=== PATIENT | female | born 1995 | race Caucasian/White ===

== ENCOUNTER 2019-08-24 14:52 | Emergency (ER) | payer OTHER ==
[~2019-08-24] VITALS: Ht 1165.9 cm; Wt 45.4 kg
[2019-08-24 15:03] VITALS: Ht 1165.9 cm; Wt 45.4 kg
[2019-08-24 16:00] LABS: BASOPHIL % 1.4 % (0-2); PLATELET COUNT 330 x10^3mcL (130-400); RED CELL DISTRIBUTION WIDTH 13.4 % (11.5-14.5)
[2019-08-24 16:06] LABS: CALCIUM 9.6 mg/dL (8.5-10.1); CARBON DIOXIDE 18.4 mmol/L (21-32); CHLORIDE SERUM 99 mmol/L (98-107); CREATININE SERUM 0.8 mg/dL (0.6-1.0); GFR1 > 60 mL/min; GLUCOSE SERUM 137 mg/dL (74-106); POTASSIUM SERUM 3.2 mmol/L (3.5-5.1); SODIUM SERUM 139 mmol/L (136-145)
[2019-08-24 16:19] LABS: ALKALINE PHOSPHATASE 58 U/L (46-116); ALT/SGPT 24 U/L (14-59); AST/SGOT 23 U/L (15-37); BILIRUBIN TOTAL 0.8 mg/dL (0.20-1.00); LIPASE 50 IU/L (73-393); T4(THYROXINE) 7.8 ug/dL (4.7-13.3)
[2019-08-24 16:22] LABS: TOTAL PROTEIN, SERUM 8.9 g/dL (6.4-8.2)
[2019-08-24 19:14] VITALS: BP 119/74
== END 2019-08-24 19:14 ==
LOC: ED 14:52
PROVIDERS: Emergency Medicine
DX: E86.0 Dehydration (principal); F32.9 Major depressive disorder, single episode, unspecified; E87.6 Hypokalemia; F12.10 Cannabis abuse, uncomplicated; R63.0 Anorexia; Z91.040 Latex allergy status
CPT/HCPCS: 82962; J2405; J3490